=== PATIENT | female | born 1985 | race Caucasian/White ===

== ENCOUNTER 2017-03-17 00:48 | Emergency (ER) | payer OTHER ==
[2017-03-17] MEDS ORDERED: Lidocaine 2% EPI 1:200000 MPF* 20 ML VIAL ONE (03:14)
[2017-03-17] MEDS ORDERED: Tetan/Diph/Pertus SYR(Tdap)* 0.5 ML SYR(BOOSTRIX) use SYR IM ONE (04:02)
[2017-03-17 04:53] VITALS: BP 94/62
--- NOTE | 2017-03-17 04:56 | ED ---
Ezio Jerez Nikita, scribgauri for Shayna Choi MD on 03/17/17 at 0335 . Laceration/Wound HPI - HPI Summary HPI Summary: This patient is a 31 year old F presenting to [facility] accompanied by friend with a chief complaint of facial laceration s/p forward fall after falling on blacktop 2 hours ago. Patient presents with laceration to lower lip and broken upper front teeth. The patient rates the pain 8/10 in severity. Symptoms aggravated and alleviated by nothing. Patients admits to drinking. - History of Current Complaint Stated Complaint: FALL/DENTAL PAIN Time Seen by Provider: 03/17/17 03:25 Hx Obtained From: Patient Onset/Duration: Sudden Onset, Lasting Hours, Still Present Aggravating: Nothing Alleviating: Nothing Current Severity: Moderate Pain Intensity: 8 Pain Scale Used: 0-10 Numeric - Allergy/Home Medications Allergies/Adverse Reactions: Allergies Allergy/AdvReac Type Severity Reaction Status Date / Time No Known Allergies Allergy Verified 03/17/17 00:53 PMH/Surg Hx/FS Hx/Imm Hx Endocrine/Hematology History: Denies: Hx Diabetes Cardiovascular History: Denies: Hx Coronary Artery Disease, Hx Hypertension - Immunization History Date of Tetanus Vaccine: unk Date of Influenza Vaccine: unk Infectious Disease History: No Infectious Disease History: Denies: Traveled Outside the [place] in Last 30 Days - Family History Known Family History: Positive: Diabetes Negative: Cardiac Disease, Hypertension - Social History Alcohol Use: Occasionally Substance Use Type: Reports: None Smoking Status (MU): Light Every Day Tobacco Smoker Review of Systems Constitutional: Other - Admits to drinking Negative: Fever Positive: Other - Facial laceration on the bottom lip All Other Systems Reviewed And Are Negative: Yes Physical Exam - Summary Physical Exam Summary: VITAL SIGNS: Reviewed. GENERAL: ~Patient is a well-developed and nourished female who is lying comfortable in the stretcher. Patient is not in any acute respiratory distress. HEAD AND FACE: 1 inch laceration below the lower lip that communicates with inside the mouth through and through. EYES: PERRLA, EOMI x 2, No injected conjunctiva, no nystagmus. EARS: Hearing grossly intact. Ear canals and tympanic membranes are within normal limits. MOUTH: Oropharynx within normal limits. NECK: Supple, trachea is midline, no adenopathy, no JVD, no carotid bruit, no c- spine tenderness, neck with full ROM. CHEST: Symmetric, no tenderness at palpation LUNGS: Clear to auscultation bilaterally. No wheezing or crackles. CVS: Regular rate and rhythm, S1 and S2 present, no murmurs or gallops appreciated. ABDOMEN: Soft, non-tender. No signs of distention. No rebound no guarding, and no masses palpated. Bowel sounds are normal. EXTREMITIES: FROM in all major joints, no edema, no cyanosis or clubbing. NEURO: Alert and oriented x 3. No acute neurological deficits. Speech is normal and follows commands. SKIN: Dry and warm Triage Information Reviewed: Yes Vital Signs On Initial Exam: Initial Vitals Temp Pulse Resp BP Pulse Ox 98 F 103 20 104/71 98 03/17/17 00:50 03/17/17 00:50 03/17/17 00:50 03/17/17 00:50 03/17/17 00:50 Vital Signs Reviewed: Yes - Raven Coma Scale Coma Scale Total: 15 Procedures - Laceration/Wound Repair 1 Location: Other - lower lip Description: Linear Anesthesia: Local, 2.0%, Lido, Epi Length, Depth and Shape: 1 inch. 3 layers were closed. Laceration/Wound Explored: Other - 3 layers closed Closure: Multilayer - middle layer - 3 stitches, inner layer - 3 stitches ( polysorp 4-0 was used); outer layer - 6 stitches (nylon 5-0 was used) Suture Type: Nylon - 5-0, Other - polysorp 4-0 Number of Sutures: 3 - 3 for inner and middle; 6 for outer Layer Closure?: Yes - good alignment with hemostasis Sterile Dressing Applied?: Yes Diagnostics - Vital Signs Vital Signs Temp Pulse Resp BP Pulse Ox 03/17/17 00:50 98 F 103 20 104/71 98 - Laboratory Lab Statement: Any lab studies that have been ordered have been reviewed, and results considered in the medical decision making process. Laceration Repair Course/Dx - Course Assessment/Plan: This patient is a 31 year old F presenting to [facility] accompanied by friend with a chief complaint of facial laceration s/p forward fall after falling on blacktop 2 hours ago. The lip laceration was on the lower lip with communication with inside the mouth. Inner and middle layer had 3 stitches each using polysorp 4-0. The outer layer had 6 stitches using nylon 5- 0. The alignment was good with hemostasis. Pt was given wound care instructions and instructions to see her PCP to take the stitches out in 5 days. Pt will be discharged. Pt is agreeable with this plan. - Differential Dx Differental Diagnoses: Other - lip laceration - Clinical Impression Provider Diagnoses: Lip laceration Discharge - Discharge Plan Condition: Stable Disposition: HOME Patient Education Materials: Care For Your Stitches (ED) Referrals: [facility] [place] [Primary Care Provider] - (Follow up with your PCP in 1-2 days. ) Additional Instructions: RETURN TO EMERGENCY DEPARTMENT FOR ANY NEW OR WORSENING SYMPTOMS Follow wound care instructions. Go to your PCP to remove outer stitches after 5 days. The documentation as recorded by the Ezio lazo Nikita accurately reflects the service I personally performed and the decisions made by , Shayna Choi MD.
== END 2017-03-17 04:51 | disposition home or self-care (01) ==
LOC: ED 00:48
DX: S01.511A Laceration without foreign body of lip, initial encounter (principal); W19.XXXA Unspecified fall, initial encounter; Y92.9 Unspecified place or not applicable; Z23 Encounter for immunization; F17.200 Nicotine dependence, unspecified, uncomplicated
CPT/HCPCS: 12051; 90715; 99282

== ENCOUNTER 2017-03-19 02:14 | Emergency (ER) | payer OTHER ==
--- NOTE | 2017-03-19 03:35 | ED ---
Kaity Jerez Rebecca, scribed for Shayna Choi MD on 03/19/17 at 0306 . Complex/Multi-Sys Presentation - HPI Summary HPI Summary: Pt is a 31 y/o F who presents to ED c/o chills for multiple hours. Sx have been constant since onset and pt states that she was concerned about infection in her chin stitches that were placed 2 days ago. Denies cough, sore throat, rhinorrhea, ear drainage. Pt was stitched on 03/17/2017 in [facility] ED. Notes that she has not eaten as much as usual due to the stitches being in place. PMHx anxiety for which she does not take any medication. - History Of Current Complaint Chief Complaint: EDGeneral Time Seen by Provider: 03/19/17 02:57 Hx Obtained From: Patient Onset/Duration: Lasting Hours, Still Present Timing: Constant Severity Currently: None Location: Negative Aggravating Factor(s): Nothing Alleviating Factor(s): Nothing Associated Signs And Symptoms: Positive: Other - Chills. Negative: Cough - Allergies/Home Medications Allergies/Adverse Reactions: Allergies Allergy/AdvReac Type Severity Reaction Status Date / Time No Known Allergies Allergy Verified 03/17/17 00:53 PMH/Surg Hx/FS Hx/Imm Hx Endocrine/Hematology History: Denies: Hx Diabetes Cardiovascular History: Denies: Hx Coronary Artery Disease, Hx Hypertension Psychiatric History: Reports: Hx Anxiety - Immunization History Date of Tetanus Vaccine: unk Date of Influenza Vaccine: unk Infectious Disease History: No Infectious Disease History: Denies: Traveled Outside the [place] in Last 30 Days - Family History Known Family History: Positive: Diabetes Negative: Cardiac Disease, Hypertension - Social History Alcohol Use: Occasionally Substance Use Type: Reports: None Smoking Status (MU): Light Every Day Tobacco Smoker Review of Systems Positive: Chills Positive: Other - NEGATIVE: Ear drainage. Negative: Sore Throat, Nasal Discharge Negative: Cough All Other Systems Reviewed And Are Negative: Yes Physical Exam - Summary Physical Exam Summary: VITAL SIGNS: Reviewed. GENERAL: Patient is a well-developed and nourished female who is lying comfortable in the stretcher, appearing slightly anxious. Patient is not in any acute respiratory distress. HEAD AND FACE: No ecchymosis, hematomas or skull depressions. No sinus tenderness. She had a laceration on her chin and inner lips 2 nights ago which were sutured by me. She seems concerned about infection and the laceration seems clean and to be healing well. EYES: PERRLA, EOMI x 2, No injected conjunctiva, no nystagmus. EARS: Hearing grossly intact. Tympanic membranes are within normal limits. Has some secrectins in the external auditory canal with some tenderness on the left side. TM is intact. MOUTH: Oropharynx within normal limits. NECK: Supple, trachea is midline, no adenopathy, no JVD, no carotid bruit, no c- spine tenderness, neck with full ROM. CHEST: Symmetric, no tenderness at palpation LUNGS: Clear to auscultation bilaterally. No wheezing or crackles. CVS: Regular rate and rhythm, S1 and S2 present, no murmurs or gallops appreciated. ABDOMEN: Soft, non-tender. No signs of distention. No rebound no guarding, and no masses palpated. Bowel sounds are normal. EXTREMITIES: FROM in all major joints, no edema, no cyanosis or clubbing. NEURO: Alert and oriented x 3. No acute neurological deficits. Speech is normal and follows commands. SKIN: Dry and warm Triage Information Reviewed: Yes Vital Signs On Initial Exam: Initial Vitals Temp Pulse Resp BP Pulse Ox 98.5 F 69 18 114/55 99 03/19/17 02:43 03/19/17 02:43 03/19/17 02:43 03/19/17 02:43 03/19/17 02:43 Vital Signs Reviewed: Yes Diagnostics - Vital Signs Vital Signs Temp Pulse Resp BP Pulse Ox 03/19/17 02:43 98.5 F 69 18 114/55 99 - Laboratory Lab Statement: Any lab studies that have been ordered have been reviewed, and results considered in the medical decision making process. Complex Multi-Symp Course/Dx Assessment/Plan: Pt is a 31 y/o F who presents to ED c/o chills for multiple hours. Sx have been constant since onset and pt states that she was concerned about infection in her chin stitches that were placed 2 days ago. Denies cough, sore throat, rhinorrhea. Pt was stitched on 03/17/2017 in [facility] ED. PMHx anxiety for which she does not take any medication. BG 92 in the ED. Pt will be D/C to home with Dx of left otitis externa and anxiety with a followup with her PCP and Ciprodex ear drops. She understands and agrees. - Diagnoses Provider Diagnoses: Otitis externa, left, Anxiety Discharge - Discharge Plan Condition: Stable Disposition: HOME Patient Education Materials: Otitis Externa (ED), Anxiety (ED) Referrals: [facility] [place] [Primary Care Provider] - 3 Days Additional Instructions: Use the Ciprodex ear drops - 1 drop to the left ear twice a day for 1 week. Follow-up with [facility]. RETURN TO EMERGENCY DEPARTMENT FOR ANY NEW OR WORSENING SYMPTOMS The documentation as recorded by the Kaity lazo Rebecca accurately reflects the service I personally performed and the decisions made by me, Shayna Choi MD.
[2017-03-19 03:44] VITALS: BP 0/0
[2017-03-19] MEDS ORDERED: Ciproflox/Dexameth OTIC.SUSP* 7.5 ML BTL LEFT EAR SCH (09:00)
== END 2017-03-19 03:40 | disposition home or self-care (01) ==
LOC: ED 02:14
DX: H60.92 Unspecified otitis externa, left ear (principal); F41.9 Anxiety disorder, unspecified; Z72.0 Tobacco use
CPT/HCPCS: 99282; A9270-GY